=== PATIENT | male | born 1995 | race Caucasian/White ===

== ENCOUNTER 2016-08-02 18:37 | Emergency (ER) | payer OTHER ==
[2016-08-02 18:48] VITALS: RESP 18
[2016-08-02 19:14] LABS: Appearance,Urine Clear (Clear); Basophils % (A) 1 %; Bilirubin,Urine Negative (Negative); CH 29.9; Eosinophils # (A) 0.2 k/uL (0-0.7); Eosinophils % (A) 4 %; Glucose,Urine (UA) Negative (Negative); HCT 42.1 % (39.0-53.0); HGB 14.3 gm/dL (13.0-17.5); Ketones,Urine Negative (Negative); Leukocyte Esterase,Urine Negative (Negative); Luc # (Auto) 0.21; Luc % (Auto) 3; Lymphocytes # (A) 2.3 k/uL (1.0-4.8); Lymphocytes % (A) 37 %; MCHC 33.9 g/dL (31.0-37.0); MCV 88.5 fL (80.0-100.0); Mean Platelet Volume 8.2; Monocytes # (A) 0.4 k/uL (0-1.0); Monocytes % (A) 7 %; Neutrophils % (A) 49 %; Nitrite,Urine Negative (Negative); PH, Urine 6.5 (5.0-8.0); Protein,Urine Negative (Negative); RBC 4.76 m/uL (4.30-5.90); RDW 13.1 % (11.5-15.5); Specific Gravity,Urine 1.001 (1.001-1.035); UA Billing (MACRO vs. MICRO) CHEM; Urobilinogen,Urine <2.0 mg/dL (<2.0); WBC 6.2 k/uL (3.8-10.6); WBC (Perox) 5.56
[2016-08-02 19:24] LABS: ALT 57 U/L (21-72); AST 31 U/L (17-59); Acetaminophen <10.0 ug/mL; Alkaline Phosphatase 70 U/L (38-126); Anion Gap 13 mmol/L; Blood Urea Nitrogen 8 mg/dL (9-20); Calcium 9.5 mg/dL (8.4-10.2); Carbon Dioxide 27 mmol/L (22-30); Chloride 103 mmol/L (98-107); Glucose 83 mg/dL (74-99); Non-African American GFR(MDRD) >60 (>60 ml/min/1.73 sqM); Potassium 3.5 mmol/L (3.5-5.1); Salicylate <1.0 mg/dL; Sodium 143 mmol/L (137-145); Total Bilirubin 0.7 mg/dL (0.2-1.3); Total Protein 7.5 g/dL (6.3-8.2)
--- NOTE | 2016-08-02 19:48 | ED ---
Psych HPI - General Chief Complaint: Psychiatric Symptoms Stated Complaint: mental health Time Seen by Provider: 08/02/16 18:55 Source: patient, RN notes reviewed Mode of arrival: ambulatory Limitations: no limitations - History of Present Illness Initial Comments: 21-year-old male presents emergency Department with chief complaint of possible withdrawal symptoms. Patient states since July 23 through August 01 he took approximately 100 - 50 mg tablets of tramadol. Patient states that he has a history of drug abuse and that he uses drugs recreational. Patient states he was not trying to harm himself. Patient states that he has no suicidal or homicidal thoughts. Denies any depression. Patient states that he was taken because his friend offered them to him. Patient states that once he starts taking drugs and that he has a very addictive personality. Patient states that he feels that everything as distorted and that he feels off. Patient denies any chest pain, palpitations, sweating episodes, headache or dizziness. He states everything just looks bigger than it should. Patient denies any nausea vomiting diarrhea constipation. Patient denies alcohol abuse. Patient states that he knows he has hep C. - Related Data Home Medications Medication Instructions Recorded Confirmed Vitamin C 500mg Chewable's 2 tab PO DAILY 08/02/16 08/02/16 Allergies Allergy/AdvReac Type Severity Reaction Status Date / Time No Known Allergies Allergy Verified 08/02/16 19:16 Review of Systems ROS Statement: Those systems with pertinent positive or pertinent negative responses have been documented in the HPI. ROS Other: All systems not noted in ROS Statement are negative. Past Medical History Past Medical History: No Reported History Additional Past Medical History / Comment(s): Hep C, recovering IV drug user. History of Any Multi-Drug Resistant Organisms: None Reported Past Surgical History: No Surgical Hx Reported Past Psychological History: No Psychological Hx Reported Smoking Status: Current every day smoker Past Alcohol Use History: Rare Past Drug Use History: Prescription Drug Abuse General Exam Limitations: no limitations General appearance: alert, in no apparent distress Head exam: Present: atraumatic, normocephalic, normal inspection Eye exam: Present: normal appearance, PERRL, EOMI. Absent: scleral icterus, conjunctival injection, periorbital swelling ENT exam: Present: normal exam, normal oropharynx, mucous membranes moist, TM's normal bilaterally, normal external ear exam Neck exam: Present: normal inspection, full ROM. Absent: tenderness, meningismus, lymphadenopathy Respiratory exam: Present: normal lung sounds bilaterally. Absent: respiratory distress, wheezes, rales, rhonchi, stridor Cardiovascular Exam: Present: regular rate, normal rhythm, normal heart sounds. Absent: systolic murmur, diastolic murmur, rubs, gallop, clicks GI/Abdominal exam: Present: soft, normal bowel sounds. Absent: distended, tenderness, guarding, rebound, rigid Neurological exam: Present: alert, oriented X3, CN II-XII intact, reflexes normal. Absent: motor sensory deficit Skin exam: Present: warm, dry, intact, normal color. Absent: rash Course Vital Signs 08/02/16 18:41 Temperature 98.1 F Pulse Rate 105 H Respiratory 18 Rate Blood Pressure 128/78 O2 Sat by Pulse 100 Oximetry Medical Decision Making - Medical Decision Making Nursing did contact poison control who recommended basic labs, EKG. He makes very is tachycardia, concern for seizures. Patient has not had any seizures. Patient's lab work does not show any acute abnormality's. Patient's EKG within normal limits. Patient this point is most likely having withdrawal symptoms. Patient will be discharged so he denies any cannot drive in his condition that he needs to have a right. Patient agrees this plan. Patient is not suicidal or homicidal. Patient is using drugs as a recreational abuse. Patient was not trying to harm himself. Patient will be discharged with follow-up. - Lab Data Result diagrams: 08/02/16 19:00 08/02/16 19:00 Lab Results 08/02/16 08/02/16 08/02/16 Range/Units 19:00 19:00 19:00 WBC 6.2 (3.8-10.6) k/uL RBC 4.76 (4.30-5.90) m/uL Hgb 14.3 (13.0-17.5) gm/dL Hct 42.1 (39.0-53.0) % MCV 88.5 (80.0-100.0) fL MCH 30.0 (25.0-35.0) pg MCHC 33.9 (31.0-37.0) g/dL RDW 13.1 (11.5-15.5) % Plt Count 154 (150-450) k/uL Neutrophils % 49 % Lymphocytes % 37 % Monocytes % 7 % Eosinophils % 4 % Basophils % 1 % Neutrophils # 3.0 (1.3-7.7) k/uL Lymphocytes # 2.3 (1.0-4.8) k/uL Monocytes # 0.4 (0-1.0) k/uL Eosinophils # 0.2 (0-0.7) k/uL Basophils # 0.0 (0-0.2) k/uL Sodium 143 (137-145) mmol/L Potassium 3.5 (3.5-5.1) mmol/L Chloride 103 (98-107) mmol/L Carbon Dioxide 27 (22-30) mmol/L Anion Gap 13 mmol/L BUN 8 L (9-20) mg/dL Creatinine 0.73 (0.66-1.25) mg/dL Est GFR (MDRD) Af Amer >60 (>60 ml/min/1.73 sqM) Est GFR (MDRD) Non-Af >60 (>60 ml/min/1.73 sqM) Glucose 83 (74-99) mg/dL Calcium 9.5 (8.4-10.2) mg/dL Total Bilirubin 0.7 (0.2-1.3) mg/dL AST 31 (17-59) U/L ALT 57 (21-72) U/L Alkaline Phosphatase 70 (38-126) U/L Total Protein 7.5 (6.3-8.2) g/dL Albumin 4.8 (3.5-5.0) g/dL Urine Color Colorless Urine Appearance Clear (Clear) Urine pH 6.5 (5.0-8.0) Ur Specific [place] 1.001 (1.001-1.035) Urine Protein Negative (Negative) Urine Glucose (UA) Negative (Negative) Urine Ketones Negative (Negative) Urine Blood Negative (Negative) Urine Nitrite Negative (Negative) Urine Bilirubin Negative (Negative) Urine Urobilinogen <2.0 (<2.0) mg/dL Ur Leukocyte Esterase Negative (Negative) Salicylates <1.0 mg/dL Urine Opiates Screen Not Detected (NotDetected) Ur Oxycodone Screen Not Detected (NotDetected) Urine Methadone Screen Not Detected (NotDetected) Ur Propoxyphene Screen Not Detected (NotDetected) Acetaminophen <10.0 ug/mL Ur Barbiturates Screen Not Detected (NotDetected) U Tricyclic Antidepress Not Detected (NotDetected) Ur Phencyclidine Scrn Not Detected (NotDetected) Ur Amphetamines Screen Not Detected (NotDetected) U Methamphetamines Scrn Not Detected (NotDetected) U Benzodiazepines Scrn Not Detected (NotDetected) Urine Cocaine Screen Not Detected (NotDetected) U Marijuana (THC) Screen Not Detected (NotDetected) 08/02/16 19:45 EKG performed at 19:20 normal sinus rhythm with a rate of 65 CA interval 120 QRS duration 102, QT/QTC 376/to 91 Disposition Clinical Impression: Mild tramadol abuse, Drug withdrawal Disposition: HOME SELF-CARE Condition: Stable Instructions: Tramadol (By mouth) Additional Instructions: Please return to the Emergency Department if symptoms worsen or any other concerns. Referrals: None,Stated [Primary Care Provider] - 1-2 days Time of Disposition: 19:47
[2016-08-02 19:57] VITALS: BP 119/56; PULSE 71; TEMP 98.2
== END 2016-08-02 19:56 | disposition home or self-care (01) ==
LOC: EC 18:37
DX: F19.239 Other psychoactive substance dependence with withdrawal, unspecified (principal); F17.200 Nicotine dependence, unspecified, uncomplicated; Z79.899 Other long term (current) drug therapy
CPT/HCPCS: 36415; 80053; 80306; 81003; 82075; 83520; 85025; 93005; 99285

== ENCOUNTER 2018-10-26 17:11 | Emergency (ER) | payer BC ==
[2018-10-26] MEDS ORDERED: SODIUM CHLORIDE 0.9% 1,000 ML IV STA (18:07)
[2018-10-26] MEDS ORDERED: ONDANSETRON 4 MG/2 ML VIAL IVP STA (18:07)
[2018-10-26] MEDS ORDERED: diphenhydrAMINE 50 MG/ML 1 ML VIAL IVP STA (18:07)
[2018-10-26] MEDS ORDERED: KETOROLAC 30 MG/ML 1 ML VIAL IVP STA (18:07)
--- NOTE | 2018-10-26 18:42 | ED ---
General Adult HPI - General Chief complaint: Eye Problems Stated complaint: Vision loss, headache Time Seen by Provider: 10/26/18 17:30 Source: patient Mode of arrival: ambulatory Limitations: no limitations - History of Present Illness Initial comments: Patient is a 23-year-old male presenting to the emergency Department with complaints of a headache since this morning. Patient states he has had a very stressful day and was at work when he noticed changes in his vision. Patient states he did not completely lose vision but states it was blurry and he felt like there was little lines in his field of vision. Patient states it lasted for about half an hour and then went away. Patient states about an hour later he started developing a headache on the right side of his head that has gradually increased. Patient states he has sensitivity to lights. Patient does have a history of headaches in the past. Patient admits to mild nausea, denies vomiting. Patient denies fever, chills, trauma. No other complaints at this time. - Related Data Home Medications Medication Instructions Recorded Confirmed Vitamin C 500mg Chewable's 2 tab PO DAILY 08/02/16 08/02/16 Allergies Allergy/AdvReac Type Severity Reaction Status Date / Time No Known Allergies Allergy Verified 08/02/16 19:16 Review of Systems ROS Statement: Those systems with pertinent positive or pertinent negative responses have been documented in the HPI. ROS Other: All systems not noted in ROS Statement are negative. Past Medical History Past Medical History: No Reported History Additional Past Medical History / Comment(s): Hep C, recovering IV drug user. History of Any Multi-Drug Resistant Organisms: None Reported Past Surgical History: No Surgical Hx Reported Past Psychological History: No Psychological Hx Reported Smoking Status: Current every day smoker Past Alcohol Use History: Rare Past Drug Use History: Prescription Drug Abuse General Exam - General Exam Comments Initial Comments: GENERAL: Well-appearing, well-nourished and in no acute distress. Appears uncomfortable. HEAD: Atraumatic, normocephalic. EYES: Pupils equal round and reactive to light, extraocular movements intact, sclera anicteric, conjunctiva are normal. ENT: TMs normal, nares patent, oropharynx clear without exudates. Moist mucous membranes. NECK: Normal range of motion, supple without lymphadenopathy or JVD. LUNGS: Breath sounds clear to auscultation bilaterally and equal. No wheezes rales or rhonchi. HEART: Regular rate and rhythm without murmurs, rubs or gallops. ABDOMEN: Soft, nontender, normoactive bowel sounds. No guarding, no rebound. No masses appreciated. : Deferred EXTREMITIES: Normal range of motion, no pitting or edema. No clubbing or cyanosis. NEUROLOGICAL: Cranial nerves II through XII grossly intact. Normal speech, normal gait. PSYCH: Normal mood, normal affect. SKIN: Warm, Dry, normal turgor, no rashes or lesions noted. Limitations: no limitations Course Vital Signs 10/26/18 10/26/18 17:15 19:36 Temperature 97.8 F 98 F Pulse Rate 80 68 Respiratory 18 16 Rate Blood Pressure 132/72 110/72 O2 Sat by Pulse 98 99 Oximetry Medical Decision Making - Medical Decision Making Patient is a 23-year-old male presenting with a migraine since this morning. Patient states he had changes in his vision at work with little lines in his field of vision as well as blurriness. Patient states that subsided after about 20-30 minutes and then his headache started. Patient did not take anything for his pain and was worried about the vision. Patient's exam is unremarkable. P atient was given fluids, Zofran, Toradol, Benadryl and had relief in symptoms. It was discussed with patient that he likely had a migraine with an aura. Patient is stable for discharge and he is in agreement with this plan. Patient will follow up with his PCP for further management of migraines. Case discussed with Dr. Bobo. Return parameters were discussed with the patient and he verbalized understanding. Disposition Clinical Impression: Migraine with aura and without status migrainosus, not intractable Disposition: HOME SELF-CARE Condition: Stable Instructions (If sedation given, give patient instructions): Migraine Headache (ED) Additional Instructions: Please return to the Emergency Department if symptoms worsen or any other concerns. Is patient prescribed a controlled substance at d/c from ED?: No Referrals: None,Stated [Primary Care Provider] - 1-2 days
[2018-10-26 19:39] VITALS: BP 110/72; PULSE 68; RESP 16; TEMP 98
== END 2018-10-26 19:53 | disposition home or self-care (01) ==
LOC: EC 17:11
DX: G43.109 Migraine with aura, not intractable, without status migrainosus (principal); F17.200 Nicotine dependence, unspecified, uncomplicated
CPT/HCPCS: 99283; 96374; 96375 ×2; 96361; J1200; J2405; J1885